=== PATIENT | female | born 1965 | race Caucasian/White ===

== ENCOUNTER 2017-04-25 17:54 | Emergency (ER) | payer OTHER ==
[~2017-04-25] VITALS: Ht 149.9 cm; Wt 90.0 kg
[~2017-04-25 17:54] MED LIST: ACYCLOVIR800 MG PO; ADVAIR 500-501 EACH IH; ADVAIR HFA120 INHALA IH; ALBUTEROL0.63 MG/3 IH; ALEVE220 MG PO; AMLODIPINE BESYL5 MG PO; ANTIVERT25 MG PO; BREO ELLIPTA I1 EACH IH; CILOSTAZOL100 MG PO; CIPRO500 MG PO; CYMBALTA30 MG PO; ELAVIL25 MG PO; FENOFIBRATE150 MG PO; FUROSEMIDE40 MG PO; Feosol PO; GEMFIBROZIL600 MG PO; GLIMEPIRIDE2 MG PO; GLUCOPHAGE500 MG PO; HYDROCODON-ACE1 EAC7 PO; LANTUS100 UNIT/1 SQ; LASIX40 MG PO; LEVAQUIN750 MG PO; LEVEMIR100 UNIT/1 SQ; LEVEMIR100 UNIT/2 SC; LEVOTHYROXINE125 MCG PO; LEVOTHYROXINE150 MCG PO; Levaquin PO; MEDROL DOSEPAK4 MG PO; MOTRIN800 MG PO; NAPROSYN500 MG PO; NORCO 5/3251 TABLET PO; NOVOLOG 10100 UNITS/ SC; NOVOLOG100 UNIT/1 SQ; NOVOLOG100 UNIT/2 SQ; PERCOCET 5/31 TABLET PO; PREDNISONE20 MG PO; PREDNISONE50 MG PO; PRILOSEC OTC20 M1 PO; PRILOSEC20 MG PO; PROAIR HFA8.5 GM IH; SERTRALINE HCL100 MG PO; SIMVASTATIN20 MG PO; SINGULAIR10 MG PO; SPIRIVA1 INHALATI IH; SYNTHROID125 MCG PO; TESSALON PERLE100 MG PO; TRAZODONE HCL50 MG PO; TYLENOL EXTRA500 MG PO; VALIUM5 MG PO; VITAMIN D; WELLBUTRIN100 M1 PO; WELLBUTRIN100 MG PO; ZESTRIL,PRINIVI20 MG PO; ZESTRIL10 MG PO; ZITHROMAX Z-PA250 MG PO; ZOCOR40 MG PO; Zocor PO
[2017-04-25] MEDS ORDERED: NAPROSYN500 MG PO (19:52)
[2017-04-25 20:09] VITALS: BP 157/94
== END 2017-04-25 20:11 | disposition home or self-care (01) ==
LOC: EME 17:54
DX: S83.92XA Sprain of unspecified site of left knee, initial encounter (principal); W19.XXXA Unspecified fall, initial encounter; I10 Essential (primary) hypertension; E11.9 Type 2 diabetes mellitus without complications; Z79.4 Long term (current) use of insulin; E78.5 Hyperlipidemia, unspecified; E03.9 Hypothyroidism, unspecified; F17.200 Nicotine dependence, unspecified, uncomplicated
CPT/HCPCS: 73564; 99281; 99283